=== PATIENT | female | born 1960 | race African-American/Black ===

== ENCOUNTER 2024-02-19 06:52 | Day surgery (SDC) | payer OTHER ==
[~2024-02-19] VITALS: Ht 167.6 cm; Wt 70.8 kg
[~2024-02-19 06:52] MED LIST: COZAAR100 MG PO; OMEPRAZOLE20 MG PO
[2024-02-19] MEDS ORDERED: BUPIVACAINE HCL/MPF 0.5% 30ML VIAL ONE (12:10)
[2024-02-19] MEDS ORDERED: CEFTRIAXONE SODIUM 2,000 MG VIAL ONE (12:10)
[2024-02-19] MEDS ORDERED: METRONIDAZOLE/SODIUM CHLORIDE 500 MG/100 ML PIGGYBACK IV ONE (12:11)
[2024-02-19] MEDS ORDERED: SUGAMMADEX SODIUM 200 MG/2 ML VIAL IV ONE (14:01)
[2024-02-19] MEDS ORDERED: TRAM1TAB98 PO (15:59)
== END 2024-02-19 17:30 | disposition home or self-care (01) ==
LOC: SURH 06:52 → CIR.AMB 06:52 → O/R 06:52 → EDSTATUS 11:15 → SURH 11:15 → CIR.AMB 17:30 → O/R 17:30
PROVIDERS: ATTEND Surgery
DX: K56.50 Intestinal adhesions [bands], unspecified as to partial versus complete obstruction (principal); R19.7 Diarrhea, unspecified; Z88.1 Allergy status to other antibiotic agents; Z91.013 Allergy to seafood; Z91.09 Other allergy status, other than to drugs and biological substances; I10 Essential (primary) hypertension